=== PATIENT | female | born 2000 | race Caucasian/White ===

== ENCOUNTER 2019-09-20 19:36 | Emergency (ER) | payer OTHER ==
[2019-09-20 20:00] VITALS: BP 129/53
--- NOTE | 2019-09-20 20:11 | ED ---
Throat Pain/Nasal Congestion - HPI Summary HPI Summary: 19 yr old female with the complaint of runny nose sore throat coughing and congestion. Onset of symptoms a few days ago. No fever or chills. No SOB. No history of asthma. - History of Current Complaint Chief Complaint: UCGeneralIllness Time Seen by Provider: 09/20/19 20:01 - Allergies/Home Medications Allergies/Adverse Reactions: Allergies Allergy/AdvReac Type Severity Reaction Status Date / Time No Known Allergies Allergy Verified 09/20/19 19:59 Home Medications: Home Medications Norgestimate-Ethinyl Estradiol [Ortho Tri-Cyclen 28 Tablet] 1 tab PO DAILY 09/20 [History Confirmed 09/20/19] PMH/Surg Hx/FS Hx/Imm Hx Infectious Disease History: No Infectious Disease History: Denies: Traveled Outside the [place] in Last 30 Days - Family History Known Family History: Positive: None - Social History Alcohol Use: Occasionally Substance Use Type: Reports: None Smoking Status (MU): Never Smoked Tobacco Review of Systems Constitutional: Negative Positive: Sore Throat, Ear Ache All Other Systems Reviewed And Are Negative: Yes Physical Exam Triage Information Reviewed: Yes Vital Signs On Initial Exam: Initial Vitals Temp Pulse Resp BP Pulse Ox 98.6 F 88 16 129/53 100 09/20/19 19:55 09/20/19 19:55 09/20/19 19:55 09/20/19 19:55 09/20/19 19:55 Vital Signs Reviewed: Yes Appearance: Positive: Well-Appearing, No Pain Distress Skin: Positive: Warm, Skin Color Reflects Adequate Perfusion Head/Face: Positive: Normal Head/Face Inspection Eyes: Positive: EOMI ENT: Positive: Pharyngeal erythema, TM red - red with retraction TM Neck: Positive: Nontender Respiratory/Lung Sounds: Positive: Clear to Auscultation, Breath Sounds Present Cardiovascular: Positive: RRR. Negative: Murmur Abdomen Description: Negative: Distended Musculoskeletal: Positive: Strength/ROM Intact Neurological: Positive: Sensory/Motor Intact, Alert, Oriented to Person Place, Time, CN Intact II-III, Speech Normal Diagnostics - Vital Signs Vital Signs Temp Pulse Resp BP Pulse Ox 09/20/19 19:55 98.6 F 88 16 129/53 100 - Laboratory Lab Statement: Any lab studies that have been ordered have been reviewed, and results considered in the medical decision making process. EENT Course/Dx - Course Course Of Treatment: 19 yr old with URI; right OM. Rx with amox. Tessalon - Diagnoses Provider Diagnoses: Upper respiratory infection, Right otitis media Discharge ED - Sign-Out/Discharge Documenting (check all that apply): Patient Departure All imaging exams completed and their final reports reviewed: No Studies - Discharge Plan Condition: Good Disposition: HOME Prescriptions: Amoxicillin PO (*) [Amoxicillin 500 MG CAP*] 500 mg PO TID #30 cap Benzonatate CAP* [Tessalon 100 MG CAP*] 100 mg PO TID PRN #[id number] PRN Reason: Cough Patient Education Materials: Ear Infection (ED), Upper Respiratory Infection ( ED) Referrals: No Primary Care Phys,NOPCP [Primary Care Provider] - [facility] [Outside] - Billing Disposition and Condition Condition: GOOD Disposition: Home
== END 2019-09-20 20:14 | disposition home or self-care (01) ==
LOC: UCCORT 19:36
DX: J06.9 Acute upper respiratory infection, unspecified (principal); H66.91 Otitis media, unspecified, right ear
CPT/HCPCS: 99202; G0463